=== PATIENT | male | born 1955 | race Hispanic/Latino ===

== ENCOUNTER 2021-03-23 08:34 | Outpatient (CLI) | payer MEDICARE, MEDICAID ==
[2021-03-23 09:27] LABS: Estimated GFR-MDRD - POC Greater than 90
== END 2021-03-23 08:35 | disposition home or self-care (01) ==
LOC: CSHMRI 08:34
PROVIDERS: ATTEND Internal Medicine Gastroenterology
DX: K74.60 Unspecified cirrhosis of liver (principal); R16.1 Splenomegaly, not elsewhere classified; R18.8 Other ascites
CPT/HCPCS: 74183; 82565

== ENCOUNTER 2021-07-31 10:17 | Inpatient (IN) | payer MEDICARE, MEDICAID ==
[2021-07-31 12:40] LABS: #Monocytes 0.4 10x3/uL (0.0-1.1); #Neutrophils 3.9 10x3/uL (1.5-8.4); %Basophils 0.4 % (0.0-2.0); %Eosinophils 0.2 % (0.0-6.0); %Lymphocytes 13.2 % (18.0-47.0); %Monocytes 7.1 % (0.0-10.0); %Neutrophils 78.7 % (40.0-75.0); Hemoglobin 13.6 g/dL (13.5-17.5); Mean Corpuscular HGB CONC 34.4 g/dL (32.0-36.0); Mean Corpuscular Hemoglobin 30.2 pg (27.0-33.0); Mean Corpuscular Volume 87.6 fl (81.2-95.1); Mean Platelet Volume 10.2 fl (7.4-10.4); Platelet Count 143 10x3/uL (150-450); RBC Distribution Width 15.5 % (11.5-14.5); Red Blood Cell (RBC) Count 4.51 10x6/uL (4.32-5.72); White Blood Cell (WBC) Count 4.9 10x3/uL (3.5-10.5)
[2021-07-31] MEDS ORDERED: Ondansetron PF 4 MG/2 ML Vial ONE ×2 (12:50→21:00)
[2021-07-31] MEDS ORDERED: Acetaminophen 500 MG TAB ONE (12:50)
[2021-07-31 12:53] LABS: ALT (SGPT) 15 U/L (8-55); AST (SGOT) 32 U/L (5-34); Albumin 3.2 g/dL (3.4-4.8); Alkaline Phosphatase 91 U/L (40-110); Anion Gap 12 mmol/L (10-20); BUN (Urea Nitrogen) 16 mg/dL (8.4-25.7); Bilirubin, Total 1.2 mg/dL (0.2-1.2); Calc. Creatinine Clearance 0 mL/min (70-130); Calcium 9.2 mg/dL (7.8-10.44); Carbon Dioxide 25 mmol/L (23-31); Chloride 105 mmol/L (98-107); Globulin 4.1 g/dL (2.4-3.5); Glucose 139 mg/dL (80-115); Lipase 8 U/L (8-78); Potassium 3.9 mmol/L (3.5-5.1); Protein, Total 7.3 g/dL (5.8-8.1); Sodium 138 mmol/L (136-145)
[2021-07-31] MEDS ORDERED: Iopamidol 300 61% 100 ML VIAL FS ONE (14:19)
[2021-07-31] MEDS ORDERED: Piperacillin/Tazobactam 3.375 GM VIAL ONE ×2 (14:40→14:58)
[2021-07-31] MEDS ORDERED: Morphine 4 MG/ML VIAL ONE (14:47)
[2021-07-31] MEDS ORDERED: Senokot S 8.6-50 MG TAB PO PRN (16:48)
[2021-07-31] MEDS ORDERED: Dextrose 5% in Water 1,000 ML IV PRN (17:31)
[2021-07-31] MEDS ORDERED: Dextrose 50% Abboject 50 ML SYRINGE SLOW IVP PRN (17:31)
[2021-07-31 17:33] LABS: SARS-CoV-2 NAA Rapid Test Not Detected (NotDetected)
[2021-07-31 18:38] VITALS: BMI 29.0
[2021-07-31] MEDS ORDERED: Rocuronium Bromide 10 MG/ML (10ML VIAL) ONE (18:38)
[2021-07-31] MEDS ORDERED: Lidocaine 1% PF 5 ML VIAL ONE (18:38)
[2021-07-31] MEDS ORDERED: Fentanyl 100 MCG/2 ML VIAL ONE ×2 (18:39→22:19)
[2021-07-31] MEDS ORDERED: PROPOFOL 20 ML ONE (18:39)
[2021-07-31] MEDS ORDERED: Bupivacaine PF 0.5% 30 ML VIAL ONE (19:09)
[2021-07-31] MEDS ORDERED: Ketamine 50 MG/ML (10ML VIAL) ONE (20:03)
[2021-07-31] MEDS ORDERED: CEFAZOLIN 1 GM VIAL ONE (20:22)
[2021-07-31] MEDS ORDERED: ePHEDrine Sulfate 50 MG/10 ML VIAL ONE (20:38)
[2021-07-31] MEDS: Rifaximin 550 MG TAB PO SCH (21:35)
[2021-07-31] MEDS: Lacosamide 50 mg Tablet PO SCH (21:35)
[2021-07-31] MEDS ORDERED: Glycopyrrolate 0.2 MG/ML 5 ML SYRINGE ONE (21:36)
[2021-07-31] MEDS ORDERED: Morphine 4 MG/ML VIAL SLOW IVP PRN (22:31)
[2021-07-31] MEDS ORDERED: Morphine 2 MG/ML VIAL SLOW IVP PRN (22:34)
[2021-07-31] MEDS: Lactated Ringer's 1,000 ML IV SCH (23:53)
[2021-08-01 04:44] LABS: #Monocytes 0.5 10x3/uL (0.0-1.1); %Basophils 0.2 % (0.0-2.0); %Eosinophils 0.4 % (0.0-6.0); %Lymphocytes 7.6 % (18.0-47.0); %Monocytes 4.8 % (0.0-10.0); %Neutrophils 86.5 % (40.0-75.0); Hemoglobin 15.5 g/dL (13.5-17.5); Mean Corpuscular HGB CONC 34.1 g/dL (32.0-36.0); Mean Corpuscular Hemoglobin 30.2 pg (27.0-33.0); Mean Corpuscular Volume 88.5 fl (81.2-95.1); Mean Platelet Volume 9.8 fl (7.4-10.4); Platelet Count 166 10x3/uL (150-450); RBC Distribution Width 15.9 % (11.5-14.5); Red Blood Cell (RBC) Count 5.14 10x6/uL (4.32-5.72); White Blood Cell (WBC) Count 10.4 10x3/uL (3.5-10.5)
[2021-08-01 04:56] LABS: ALT (SGPT) 15 U/L (8-55); AST (SGOT) 26 U/L (5-34); Albumin 2.8 g/dL (3.4-4.8); Alkaline Phosphatase 79 U/L (40-110); Anion Gap 12 mmol/L (10-20); BUN (Urea Nitrogen) 16 mg/dL (8.4-25.7); Calc. Creatinine Clearance 101 mL/min (70-130); Calcium 8.6 mg/dL (7.8-10.44); Carbon Dioxide 26 mmol/L (23-31); Chloride 107 mmol/L (98-107); Globulin 3.6 g/dL (2.4-3.5); Glucose 120 mg/dL (80-115); Potassium 4.1 mmol/L (3.5-5.1); Protein, Total 6.4 g/dL (5.8-8.1); Sodium 141 mmol/L (136-145)
[2021-08-01] MEDS ORDERED: guaiFENesin ER 600 MG TAB PO PRN (08:00)
[2021-08-01] MEDS: Lactated Ringer's 1,000 ML IV SCH ×3 (08:33→22:23)
[2021-08-01] MEDS: Rifaximin 550 MG TAB PO SCH ×2 (08:33→20:28)
[2021-08-01] MEDS: Lacosamide 50 mg Tablet PO SCH ×2 (08:34→20:26)
[2021-08-01] MEDS ORDERED: Furosemide 20 MG/2 ML VIAL SLOW IVP SCH (09:00)
[2021-08-02 04:25] LABS: Hemoglobin 14.8 g/dL (13.5-17.5); Mean Corpuscular HGB CONC 34.2 g/dL (32.0-36.0); Mean Corpuscular Hemoglobin 30.5 pg (27.0-33.0); Mean Corpuscular Volume 89.1 fl (81.2-95.1); Mean Platelet Volume 10.2 fl (7.4-10.4); Platelet Count 156 10x3/uL (150-450); RBC Distribution Width 15.5 % (11.5-14.5); Red Blood Cell (RBC) Count 4.86 10x6/uL (4.32-5.72); White Blood Cell (WBC) Count 12.7 10x3/uL (3.5-10.5)
[2021-08-02 04:44] LABS: Anion Gap 14 mmol/L (10-20); BUN (Urea Nitrogen) 29 mg/dL (8.4-25.7); Calc. Creatinine Clearance 71 mL/min (70-130); Calcium 8.5 mg/dL (7.8-10.44); Carbon Dioxide 24 mmol/L (23-31); Chloride 103 mmol/L (98-107); Glucose 137 mg/dL (80-115); Potassium 4.1 mmol/L (3.5-5.1); Sodium 137 mmol/L (136-145)
[2021-08-02] MEDS: Lacosamide 50 mg Tablet PO SCH ×2 (08:23→20:58)
[2021-08-02] MEDS: Lactated Ringer's 1,000 ML IV SCH (08:24)
[2021-08-02] MEDS: Furosemide 40 MG TAB PO SCH (08:24)
[2021-08-02] MEDS: Rifaximin 550 MG TAB PO SCH ×2 (08:24→20:59)
[2021-08-03 05:04] LABS: Mean Corpuscular HGB CONC 34.7 g/dL (32.0-36.0); Mean Corpuscular Volume 89.5 fl (81.2-95.1); Mean Platelet Volume 9.6 fl (7.4-10.4); Platelet Count 147 10x3/uL (150-450); RBC Distribution Width 15.4 % (11.5-14.5); Red Blood Cell (RBC) Count 4.19 10x6/uL (4.32-5.72); White Blood Cell (WBC) Count 10.2 10x3/uL (3.5-10.5)
[2021-08-03 05:15] LABS: Anion Gap 15 mmol/L (10-20); BUN (Urea Nitrogen) 29 mg/dL (8.4-25.7); Calc. Creatinine Clearance 106 mL/min (70-130); Calcium 8.2 mg/dL (7.8-10.44); Carbon Dioxide 22 mmol/L (23-31); Chloride 104 mmol/L (98-107); Glucose 130 mg/dL (80-115); Potassium 3.9 mmol/L (3.5-5.1); Sodium 137 mmol/L (136-145)
[2021-08-03] MEDS: Furosemide 40 MG TAB PO SCH (09:33)
[2021-08-03] MEDS: Rifaximin 550 MG TAB PO SCH ×2 (09:33→21:37)
[2021-08-03] MEDS: Lacosamide 50 mg Tablet PO SCH ×2 (09:33→21:37)
[2021-08-03] MEDS: Lactated Ringer's 1,000 ML IV SCH (09:34)
[2021-08-04] MEDS ORDERED: Lactated Ringer's 1,000 ML IV SCH (07:15)
[2021-08-04 07:35] LABS: #Eosinphils 0.1 10x3/uL (0.0-0.5); #Monocytes 0.8 10x3/uL (0.0-1.1); #Neutrophils 5.7 10x3/uL (1.5-8.4); %Basophils 0.3 % (0.0-2.0); %Eosinophils 0.8 % (0.0-6.0); %Lymphocytes 10.8 % (18.0-47.0); %Monocytes 10.5 % (0.0-10.0); %Neutrophils 77.2 % (40.0-75.0); Hemoglobin 12.4 g/dL (13.5-17.5); Mean Corpuscular Hemoglobin 30.5 pg (27.0-33.0); Mean Corpuscular Volume 87.2 fl (81.2-95.1); Mean Platelet Volume 9.4 fl (7.4-10.4); Platelet Count 159 10x3/uL (150-450); RBC Distribution Width 15.3 % (11.5-14.5); Red Blood Cell (RBC) Count 4.06 10x6/uL (4.32-5.72); White Blood Cell (WBC) Count 7.4 10x3/uL (3.5-10.5)
[2021-08-04 07:54] LABS: Anion Gap 14 mmol/L (10-20); BUN (Urea Nitrogen) 18 mg/dL (8.4-25.7); Calc. Creatinine Clearance 115 mL/min (70-130); Calcium 8.1 mg/dL (7.8-10.44); Carbon Dioxide 26 mmol/L (23-31); Chloride 102 mmol/L (98-107); Glucose 121 mg/dL (80-115); Potassium 3.3 mmol/L (3.5-5.1); Sodium 139 mmol/L (136-145)
[2021-08-04] MEDS: Pantoprazole 40 MG VIAL IVP SCH (08:59)
[2021-08-04] MEDS: Rifaximin 550 MG TAB PO SCH ×2 (08:59→23:05)
[2021-08-04] MEDS: Furosemide 40 MG TAB PO SCH (09:00)
[2021-08-04] MEDS ORDERED: Potassium Chloride 20 MEQ in Premix Bag 1 BAG IVPB SCH (09:00)
[2021-08-04] MEDS: Lacosamide 50 mg Tablet PO SCH ×2 (09:00→23:05)
[2021-08-04] MEDS: Nicotine 7 MG PATCH TD SCH (09:18)
[2021-08-04] MEDS: Potassium Chloride 20 MEQ in Lactated Ringer's 1,000 ML IV SCH (17:34)
[2021-08-05 04:37] LABS: #Eosinphils 0.2 10x3/uL (0.0-0.5); #Monocytes 0.5 10x3/uL (0.0-1.1); #Neutrophils 3.3 10x3/uL (1.5-8.4); %Basophils 0.4 % (0.0-2.0); %Eosinophils 3.9 % (0.0-6.0); %Lymphocytes 15.8 % (18.0-47.0); %Monocytes 10.9 % (0.0-10.0); %Neutrophils 68.4 % (40.0-75.0); Hemoglobin 12.3 g/dL (13.5-17.5); Mean Corpuscular HGB CONC 34.8 g/dL (32.0-36.0); Mean Corpuscular Hemoglobin 30.8 pg (27.0-33.0); Mean Corpuscular Volume 88.5 fl (81.2-95.1); Mean Platelet Volume 9.3 fl (7.4-10.4); Platelet Count 180 10x3/uL (150-450); RBC Distribution Width 14.6 % (11.5-14.5); Red Blood Cell (RBC) Count 3.99 10x6/uL (4.32-5.72); White Blood Cell (WBC) Count 4.9 10x3/uL (3.5-10.5)
[2021-08-05 04:54] LABS: ALT (SGPT) 8 U/L (8-55); AST (SGOT) 21 U/L (5-34); Albumin 2.4 g/dL (3.4-4.8); Alkaline Phosphatase 64 U/L (40-110); Anion Gap 13 mmol/L (10-20); BUN (Urea Nitrogen) 15 mg/dL (8.4-25.7); Calc. Creatinine Clearance 110 mL/min (70-130); Calcium 8.1 mg/dL (7.8-10.44); Carbon Dioxide 26 mmol/L (23-31); Chloride 103 mmol/L (98-107); Globulin 3.4 g/dL (2.4-3.5); Glucose 101 mg/dL (80-115); Potassium 3.2 mmol/L (3.5-5.1); Protein, Total 5.8 g/dL (5.8-8.1); Sodium 139 mmol/L (136-145)
[2021-08-05] MEDS ORDERED: Potassium Chloride 20 MEQ in Premix Bag 1 BAG IVPB SCH ×2 (08:00→13:15)
[2021-08-05] MEDS: Furosemide 40 MG TAB PO SCH (08:20)
[2021-08-05] MEDS: Pantoprazole 40 MG VIAL IVP SCH (08:20)
[2021-08-05] MEDS: Rifaximin 550 MG TAB PO SCH ×2 (08:20→20:54)
[2021-08-05] MEDS: Lacosamide 50 mg Tablet PO SCH ×2 (08:20→20:54)
[2021-08-05] MEDS: Nicotine 7 MG PATCH TD SCH (08:21)
[2021-08-05] MEDS: Potassium Chloride 20 MEQ in Lactated Ringer's 1,000 ML IV SCH (13:20)
[2021-08-06 03:43] LABS: Anion Gap 10 mmol/L (10-20); BUN (Urea Nitrogen) 12 mg/dL (8.4-25.7); Calc. Creatinine Clearance 115 mL/min (70-130); Calcium 7.9 mg/dL (7.8-10.44); Carbon Dioxide 26 mmol/L (23-31); Chloride 106 mmol/L (98-107); Glucose 104 mg/dL (80-115); Magnesium 1.6 mg/dL (1.6-2.6); Sodium 139 mmol/L (136-145)
[2021-08-06] MEDS: Lacosamide 50 mg Tablet PO SCH ×2 (08:50→20:08)
[2021-08-06] MEDS: Potassium Chloride 20 MEQ TAB PO SCH ×2 (08:50→12:30)
[2021-08-06] MEDS: Rifaximin 550 MG TAB PO SCH ×2 (08:50→20:10)
[2021-08-06] MEDS: Furosemide 40 MG TAB PO SCH (08:50)
[2021-08-06] MEDS: Pantoprazole 40 MG VIAL IVP SCH (08:51)
[2021-08-06] MEDS: Nicotine 7 MG PATCH TD SCH (08:51)
[2021-08-06 09:14] LABS: Anion Gap 11 mmol/L (10-20); BUN (Urea Nitrogen) 12 mg/dL (8.4-25.7); Calc. Creatinine Clearance 113 mL/min (70-130); Calcium 8.4 mg/dL (7.8-10.44); Carbon Dioxide 27 mmol/L (23-31); Chloride 102 mmol/L (98-107); Glucose 115 mg/dL (80-115); Potassium 3.3 mmol/L (3.5-5.1); Sodium 137 mmol/L (136-145)
[2021-08-06] MEDS: Potassium Chloride 20 MEQ in Lactated Ringer's 1,000 ML IV SCH (10:32)
[2021-08-06] MEDS: HumaLOG 300 UNITS/3 ML VIAL SC PRN ×2 (12:31→20:08)
[2021-08-06] MEDS ORDERED: Ibuprofen 400 MG TAB PO PRN (18:54)
[2021-08-07] MEDS: Rifaximin 550 MG TAB PO SCH (08:31)
[2021-08-07] MEDS: Nicotine 7 MG PATCH TD SCH (08:31)
[2021-08-07] MEDS: Furosemide 40 MG TAB PO SCH (08:31)
[2021-08-07] MEDS: Lacosamide 50 mg Tablet PO SCH (08:31)
[2021-08-07] MEDS: HumaLOG 300 UNITS/3 ML VIAL SC PRN (12:23)
[2021-08-07 12:58] VITALS: BP 113/59; TEMP 98.2
[2021-08-07 15:52] LABS: SARS-CoV-2 PCR by NAA Not Detected (NotDetected)
== END 2021-08-07 17:00 | disposition home or self-care (01) | DRG 354 ==
LOC: CSHERS 10:17 → CSHTELE 17:50
PROVIDERS: ADMIT Hospitalist; ATTEND Internal Medicine
PROC: 0WQF0ZZ Repair Abdominal Wall, Open Approach (ICD-10-PCS; principal; 2021-07-31)
PROC: 0D9670Z Drainage of Stomach with Drainage Device, Via Natural or Artificial Opening (ICD-10-PCS; 2021-07-31)
DX: K43.6 Other and unspecified ventral hernia with obstruction, without gangrene (principal); J95.89 Other postprocedural complications and disorders of respiratory system, not elsewhere classified; J98.11 Atelectasis; K56.7 Ileus, unspecified; E11.9 Type 2 diabetes mellitus without complications; I10 Essential (primary) hypertension; F17.210 Nicotine dependence, cigarettes, uncomplicated; D69.6 Thrombocytopenia, unspecified; K70.31 Alcoholic cirrhosis of liver with ascites; K21.9 Gastro-esophageal reflux disease without esophagitis; G40.909 Epilepsy, unspecified, not intractable, without status epilepticus; Z20.822 Contact with and (suspected) exposure to COVID-19; K42.9 Umbilical hernia without obstruction or gangrene; Y83.8 Other surgical procedures as the cause of abnormal reaction of the patient, or of later complication, without mention of misadventure at the time of the procedure; E87.6 Hypokalemia; Z79.82 Long term (current) use of aspirin; Z79.899 Other long term (current) drug therapy; Z79.2 Long term (current) use of antibiotics; Z90.49 Acquired absence of other specified parts of digestive tract
CPT/HCPCS: 36415; 36416; 71045; 74018; 74022; 74177; 80048; 80053; 83690; 83735; 85025; 85027; 94640; 94760; 94799; 96365; 96375; C1776; C9113; J0690; J1815; J1940; J2270; J2405; J2543; J2704; J3010; J3480; J7120; J7620; Q9967; S0020; U0002; U0003; U0005